=== PATIENT | female | born 1980 | race American Indian/Alaskan Native ===

== ENCOUNTER 2020-08-04 00:54 | Emergency (ER) | payer BC, OTHER ==
--- NOTE | 2020-08-04 03:35 | Emergency Department Report ---
ED General Adult HPI - General Chief complaint: Neuro Symptoms/Deficit Stated complaint: NUMBNESS PUI?: No Time Seen by Provider: 08/04/20 03:23 Source: patient, RN notes reviewed Mode of arrival: Ambulatory Limitations: No Limitations - History of Present Illness Initial comments: The patient was evaluated in the emergency department for symptoms described in the history of present illness. He/she was evaluated in the context of the global COVID-19 pandemic, which necessitated consideration that the patient might be at risk for infection with the virus that causes COVID-19. Institutional protocols and algorithms that pertain to the evaluation of patients at risk for COVID-19 are in a state of rapid change based on inf ormation released by regulatory bodies including the CDC and federal and state organizations. These policies and algorithms were followed during the patient's care in the emergency department. Please note that these policies, procedures and recommendations changed on a rapid basis. Patient is a 40-year-old female who is not known to myself previously. She has a history of hypertension. She states that she is not , and has not delivered or given in the past 6 weeks. The patient presents to the ER today with a complaint of total body numbness. This started approximately 24 hours ago. The patient is right-hand dominant, and works administratively with computers. She states that she felt like her bilateral arms felt like they were getting "tingly and numb, starting from the shoulders and going distally, and indicates that she felt her bilateral lower extremities, from her thigh distal, became "tingly and numb." Denies headache, neck pain, chest pain, abdominal pain, shortness of breath, loss of vision, weakness, ataxia, bladder or bowel retention/incontinence. She also reports some bilateral plantar foot discomfort. States she started a new blood pressure medication 2 weeks ago, but otherwise, no recent medications. States she does not smoke. -: Gradual, days(s) Location: left, right, upper extremity, lower extremity Radiation: extremity Quality: other (Numb) Consistency: intermittent Improves with: none Worsens with: none Associated Symptoms: denies other symptoms - Related Data Previous Rx's Medication Instructions Recorded Last Taken Type Amoxicillin [Trimox CAP] 500 mg PO Q8H #30 capsule 08/15/14 Unknown Rx Promethazine /Codeine 5 ml PO Q6H PRN #120 ml 12/13/14 Unknown Rx [Phenergan/Codeine 6.25-10 mg/5 ml] Allergies Allergy/AdvReac Type Severity Reaction Status Date / Time No Known Allergies Allergy Unverified 08/15/14 08:41 ED Review of Systems ROS: Stated complaint: NUMBNESS Other details as noted in HPI Comment: All other systems reviewed and negative Neurological: paresthesias ED Past Medical Hx - Past Medical History Previous Medical History?: Yes Hx Hypertension: Yes Additional medical history: - 2006 - Surgical History Past Surgical History?: Yes Additional Surgical History: "Breast reduction" - Social History Smoking Status: Former Smoker Substance Use Type: Alcohol - Medications Home Medications: Home Medications Medication Instructions Recorded Confirmed Last Taken Type Amoxicillin [Trimox CAP] 500 mg PO Q8H #30 capsule 08/15/14 Unknown Rx Promethazine /Codeine 5 ml PO Q6H PRN #120 ml 08/15/14 Unknown Rx [Phenergan/Codeine 6.25-10 mg/5 ml] ED Physical Exam - General Limitations: No Limitations General appearance: alert, in no apparent distress - Head Head exam: Present: atraumatic, normocephalic - Eye Eye exam: Present: normal appearance, PERRL, EOMI, other (Visual acuity intact to finger counting, color perception, reading at a close distance). Absent: nystagmus - ENT ENT exam: Present: normal exam, normal orophraynx, mucous membranes moist, normal external ear exam - Neck Neck exam: Present: normal inspection, full ROM. Absent: tenderness, meningismus - Respiratory Respiratory exam: Present: normal lung sounds bilaterally. Absent: respiratory distress, wheezes, rales, rhonchi, stridor, chest wall tenderness - Cardiovascular Cardiovascular Exam: Present: regular rate, normal rhythm, normal heart sounds. Absent: bradycardia, tachycardia, irregular rhythm, systolic murmur, diastolic murmur, rubs, gallop - GI/Abdominal GI/Abdominal exam: Present: soft, normal bowel sounds. Absent: distended, tenderness, guarding, rebound, rigid, pulsatile mass - Extremities Exam Extremities exam: Present: normal inspection, full ROM, other (2+ pulses noted in the bilateral upper and lower extremities. There is no palpable cord. negative Homans sign. Muscular compartments are soft. The pelvis is stable.). Absent: pedal edema, calf tenderness - Back Exam Back exam: Present: normal inspection, full ROM. Absent: tenderness, CVA tenderness (R), CVA tenderness (L), paraspinal tenderness, vertebral tenderness - Neurological Exam Neurological exam: Present: alert, oriented X3, normal gait, other (There is no facial droop. The tongue is midline. Extraocular movements are intact bilaterally. There is 5 out of 5 strength in bilateral upper and lower extremities. Sensation is intact to light touch bilateral upper and lower extremities. There is no past-pointing. There is no pronator drift. There is normal [id number]. There is a normal gait.). Absent: motor sensory deficit (Downgoing plantar reflexes bilaterally. Sensation intact in the bilateral upper and lower extremities to light touch, and proprioception. There is no clonus. There is no hyperreflexia noted.) - Psychiatric Psychiatric exam: Present: normal affect, normal mood - Skin Skin exam: Present: warm, dry, intact, normal color. Absent: rash ED Course Vital Signs 08/04/20 08/04/20 08/04/20 01:13 03:05 05:15 Temperature 98.9 F 98.1 F Pulse Rate 84 76 85 Respiratory 18 18 18 Rate Blood Pressure 125/85 Blood Pressure 134/52 123/61 [Right] O2 Sat by Pulse 96 98 97 Oximetry - Reevaluation(s) Reevaluation #1: 08/04/20 05:07 Laboratory studies unremarkable, TSH pending at this time. Examination not suggestive of hyperthyroidism or hypothyroidism. Patient would like to be discharged. She indicates she can have her primary care doctor follow-up laboratory result. ED Medical Decision Making - Lab Data Result diagrams: 08/04/20 03:44 08/04/20 03:44 Vital Signs 08/04/20 08/04/20 01:13 03:05 Temperature 98.9 F 98.1 F Pulse Rate 84 76 Respiratory 18 18 Rate Blood Pressure 125/85 Blood Pressure 134/52 [Right] O2 Sat by Pulse 96 98 Oximetry Lab Results 08/04/20 08/04/20 08/04/20 Range/Units 03:44 03:44 03:50 Hgb 13.3 (10.1-14.3) gm/dl Hct 38.4 (30.3-42.9) % Plt Count 241 (140-440) K/mm3 Sodium 140 (137-145) mmol/L Potassium 3.8 (3.6-5.0) mmol/L Chloride 104.7 (98-107) mmol/L Carbon Dioxide 25 (22-30) mmol/L Anion Gap 14 mmol/L BUN 14 (7-17) mg/dL Creatinine 0.6 (0.6-1.2) mg/dL Estimated GFR > 60 ml/min BUN/Creatinine Ratio 23 % Glucose 113 H (65-100) mg/dL Calcium 9.3 (8.4-10.2) mg/dL Magnesium 2.10 (1.7-2.3) mg/dL Total Bilirubin 0.30 (0.1-1.2) mg/dL AST 20 (5-40) units/L ALT 21 (7-56) units/L Alkaline Phosphatase 69 (35-129) units/L Total Creatine Kinase 140 H (30-135) units/L Total Protein 7.1 (6.3-8.2) g/dL Albumin 4.0 (3.9-5) g/dL Albumin/Globulin Ratio 1.3 % HCG, Quant < 2 (0-4) mIU/mL - Medical Decision Making Differential diagnosis, including but not limited to: Myositis, electrolyte derangement, thyroid derangement, peripheral neuropathy Assessment and plan: 40-year-old female with essentially painless sensation of numbness. She has a GCS of 15, with NIH score of 0, sensation intact to light touch, proprioception, downgoing plantar reflexes with soft muscular compartments. Examination at this time not suggestive or consistent with epidural compression syndrome, or acute ischemic stroke. Doubt emergent condition at this time. Check basic laboratory studies to evaluate for electrolyte derangement, thyroid derangement, and CK level. Reassess after initial data points. Have discussed plan of care with the patient, who verbalized understanding. Critical care attestation.: If time is entered above; I have spent that time in minutes in the direct care of this critically ill patient, excluding procedure time. ED Disposition Clinical Impression: History of paresthesia Disposition: DC- TO HOME OR SELFCARE Is pt being admited?: No Does the pt Need Aspirin: No Condition: Stable Instructions: Paresthesia Additional Instructions: Please continue current outpatient medications. Please follow-up with a primary care doctor or a neurologist within the next week. Please have a primary care doctor contact medical records department to obtain copies of laboratory studies, and follow-up on nonemergent abnormal findings. Please return to the emergency room right away with new pain, worsened pain, migration of pain, projectile vomiting, change in mental status, confusion, inability to tolerate liquid feeds. Participates in physical activities as tolerated. Referrals: SYEDA NOWAK MD [Referring] - 3-5 Days MIGUEL GILL MD [Staff Physician] - 3-5 Days Forms: Work/School Release Form(ED)
[2020-08-04 04:01] LABS: Hematocrit 38.4 % (30.3-42.9); Hemoglobin 13.3 gm/dl (10.1-14.3)
[2020-08-04 04:49] LABS: Alanine Aminotransferase 21 units/L (7-56); Blood Urea Nitrogen 14 mg/dL (7-17); Calcium 9.3 mg/dL (8.4-10.2); Hemolysis Index 9
[2020-08-04 04:52] LABS: BUN/Creatinine Ratio 23
[2020-08-04 05:18] VITALS: BP 123/61
== END 2020-08-04 05:15 | disposition home or self-care (01) ==
LOC: ED 00:54
DX: R20.2 Paresthesia of skin (principal); I10 Essential (primary) hypertension; Z87.891 Personal history of nicotine dependence; Z79.899 Other long term (current) drug therapy
CPT/HCPCS: 36415; 80053; 82550; 83735; 84443; 84702; 85014; 85018; 85049; 99283

== ENCOUNTER 2021-11-01 12:49 | Emergency (ER) | payer BC ==
[2021-11-01 13:16] VITALS: BP 141/85
--- NOTE | 2021-11-01 15:03 | Emergency Department Report ---
ED General Adult HPI - General Chief complaint: Chest Pain Stated complaint: CHEST/LT SHOULDER PAIN Source: patient Mode of arrival: Ambulatory Limitations: No Limitations - History of Present Illness Initial comments: 41-year-old female presents to the ED complaining of left shoulder pain x4 months. She stated that she was lifting a case of water from [employer], this the incident she has been having ongoing left shoulder pain that radiates radiates other her shoulder blade to her upper chest wall. She states that she is taking ibuprofen 800 mg at night with relief. Denies any chest pain or pain at present time. Patient states that the pain is more prevalent when she is attempting to lift and has worsened over the last 2. Patient is alert and oriented x3. No acute distress noted - Related Data Previous Rx's Medication Instructions Recorded Last Taken Type Amoxicillin [Trimox CAP] 500 mg PO Q8H #30 capsule 08/15/14 Unknown Rx Promethazine /Codeine 5 ml PO Q6H PRN #120 ml 08/15/14 Unknown Rx [Phenergan/Codeine 6.25-10 mg/5 ml] Naproxen [Naprosyn] 500 mg PO BID 15 Days #30 tablet 11/01/21 Unknown Rx methOCARBAMOL [Robaxin TAB] 750 mg PO Q8H PRN 15 Days #30 tab 11/01/21 Unknown Rx Allergies Allergy/AdvReac Type Severity Reaction Status Date / Time No Known Allergies Allergy Unverified 08/15/14 08:41 ED Review of Systems ROS: Stated complaint: CHEST/LT SHOULDER PAIN Other details as noted in HPI Constitutional: denies: chills, fever Eyes: denies: eye pain, eye discharge, vision change ENT: denies: ear pain, throat pain Respiratory: denies: cough, shortness of breath, wheezing Cardiovascular: denies: chest pain, palpitations Endocrine: no symptoms reported Gastrointestinal: denies: abdominal pain, nausea, diarrhea Genitourinary: denies: urgency, dysuria, discharge Musculoskeletal: denies: back pain, joint swelling, arthralgia Skin: denies: rash, lesions Neurological: denies: headache, weakness, paresthesias Psychiatric: denies: anxiety, depression Hematological/Lymphatic: denies: easy bleeding, easy bruising ED Past Medical Hx - Past Medical History Hx Hypertension: Yes Additional medical history: - 2006 - Surgical History Additional Surgical History: "Breast reduction" - Social History Smoking Status: Former Smoker Substance Use Type: Alcohol - Medications Home Medications: Home Medications Medication Instructions Recorded Confirmed Last Taken Type Amoxicillin [Trimox CAP] 500 mg PO Q8H #30 capsule 08/15/14 Unknown Rx Promethazine /Codeine 5 ml PO Q6H PRN #120 ml 08/15/14 Unknown Rx [Phenergan/Codeine 6.25-10 mg/5 ml] Naproxen [Naprosyn] 500 mg PO BID 15 Days #30 tablet 11/01/21 Unknown Rx methOCARBAMOL [Robaxin TAB] 750 mg PO Q8H PRN 15 Days #30 tab 11/01/21 Unknown Rx ED Physical Exam - General Limitations: No Limitations General appearance: alert, in no apparent distress - Head Head exam: Present: atraumatic, normocephalic - Eye Eye exam: Present: normal appearance - ENT ENT exam: Present: mucous membranes moist - Neck Neck exam: Present: normal inspection - Respiratory Respiratory exam: Present: normal lung sounds bilaterally. Absent: respiratory distress - Cardiovascular Cardiovascular Exam: Present: regular rate, normal rhythm. Absent: systolic murmur, diastolic murmur, rubs, gallop - GI/Abdominal GI/Abdominal exam: Present: soft, normal bowel sounds - Extremities Exam Extremities exam: Present: normal inspection - Back Exam Back exam: Present: normal inspection - Neurological Exam Neurological exam: Present: alert, oriented X3 - Psychiatric Psychiatric exam: Present: normal affect, normal mood - Skin Skin exam: Present: warm, dry, intact, normal color. Absent: rash ED Course Vital Signs 11/01/21 13:14 Temperature 98.8 F Pulse Rate 75 Respiratory 16 Rate Blood Pressure 141/85 [Left] O2 Sat by Pulse 99 Oximetry ED Medical Decision Making - Medical Decision Making 41-year-old female presents to the ED complaining of left shoulder pain x4 months. She stated that she was lifting a case of water from [employer], this the incident she has been having ongoing left shoulder pain that radiates radiates other her shoulder blade to her upper chest wall. She states that she is taking ibuprofen 800 mg at night with relief. Denies any chest pain or pain at present time. Patient states that the pain is more prevalent when she is attempting to lift and has worsened over the last 2. Patient is alert and oriented x3. No acute distress noted. Physical examination unremarkable. Patient has full range of motion in the left shoulder. Patient had EKG done normal sinus rhythm 74 ,no ST elevation,. Patient do not wish to have any further blood work done at present time . She states that the ibuprofen is controlling the pain will follow up with orthopedic and primary care doctor. Rechecked the patient is resting quietly quietly and comfortable and feeling better. I discussed the results of diagnostic study, my clinical impression and the plan for further treatment with the patient. Patient agrees with plan and discharge at this present time. All question addressed. I have given the patient instruction regarding a diagnosis ,expectation ,follow- up and return precaution. I explained to the patient that emergent condition may arise and to return to the ED for new worsen and any new persisting condition. I have explained the importance of following up with the primary care physician or referral physician listed below has instructed. The patient verbalized understanding of discharge instruction. Critical care attestation.: If time is entered above; I have spent that time in minutes in the direct care of this critically ill patient, excluding procedure time. ED Disposition Clinical Impression: Shoulder pain, left Qualifiers: Chronicity: chronic Qualified Code(s): M25.512 - Pain in left shoulder Disposition: 01 HOME / SELF CARE / HOMELESS Is pt being admited?: No Does the pt Need Aspirin: No Condition: Stable Instructions: How to Use Cold Therapy, [id number], Shoulder Pain, [id number], Musculoskeletal Pain Additional Instructions: Take medication as prescribed Return to ED for any worsening symptom Prescriptions: Naproxen [Naprosyn] 500 mg PO BID 15 Days #30 tablet methOCARBAMOL [Robaxin TAB] 750 mg PO Q8H PRN 15 Days #30 tab PRN Reason: Muscle Spasm Referrals: TALI PRIDE MD [Staff Physician] - 3-5 Days Forms: Work/School Release Form(ED)
--- NOTE | 2021-11-03 13:10 | Electrocardiograph Report ---
[facility] Test Date: 2021-11-01 Test Time: 13:26:41 Pat Name: JEANIE CONNELLY Department: Room: Gender: F [employer] Functional Tester: JANEL : 1980 Requested By: LEI PLATT Order Number: [id number] Reading MD: Cristina Renner Measurements Intervals [place] Rate: 74 P: 45 PA: 168 QRS: 26 QRSD: 76 T: 1 QT: 363 QTc: 404 Interpretive Statements Sinus rhythm No previous ECG available for comparison Electronically Signed On 11-03-2021 13:10:34 EST by Cristina Renner
== END 2021-11-01 16:11 | disposition home or self-care (01) ==
LOC: ED 12:49
DX: M25.512 Pain in left shoulder (principal); I10 Essential (primary) hypertension; Z87.891 Personal history of nicotine dependence
CPT/HCPCS: 93005; 93010; 99282

== ENCOUNTER 2021-11-22 13:04 | Outpatient (CLI) | payer BC ==
--- NOTE | 2021-11-22 16:47 | XRay Report ---
Left shoulder, 3 views HISTORY: Left shoulder pain COMPARISON: None FINDINGS: No acute fracture or malalignment. There is no significant arthritis. Subacromial space is preserved. Soft tissues are unremarkable. Visualized lungs are clear. IMPRESSION: No significant abnormality of the left shoulder. Signer Name: Thierno Abdalla MD Signed: 11/22/2021 4:43 PM Workstation Name: [id number]
== END 2021-11-22 13:05 | disposition home or self-care (01) ==
LOC: XRAY 13:04
PROVIDERS: ATTEND Orthopaedic Surgery
DX: M25.512 Pain in left shoulder (principal)